=== PATIENT | female | born 1960 | race African-American/Black ===

== ENCOUNTER → 2016-11-21 | Outpatient (CLI) | payer BC ==
[2016-11-21 08:31] LABS: BASOPHILS % 0.7 % (0.0-2.0); HEMATOCRIT. 39.4 % (36.0-48.0); HEMOGLOBIN. 12.9 g/dL (12.0-16.0); LYMPHOCYTES % 39.1 % (20.0-50.0); MEAN CORPUSCULAR HEMOGLOBIN 28.1 pg (28.0-32.0); MEAN CORPUSCULAR HGB CONC 32.6 g/dL (31.0-37.0); MEAN PLATELET VOLUME 9.1 fl (7.4-10.4); MONOCYTES % 6.6 % (2.0-8.0); NEUTROPHILS % 50.6 % (40.0-76.0); PLATELET 255 x1000/uL (130-400); RED BLOOD CELL COUNT 4.58 mill/uL (4.2-5.4); RED CELL DISTRIBUTION WIDTH 13.8 % (11.6-14.6); WHITE BLOOD COUNT 9.6 x1000/uL (4.5-11.0)
[2016-11-21 08:41] LABS: CLARITY URINE CLEAR (CLEAR); COLOR URINE YELLOW (YELLOW); GLUCOSE URINE NEGATIVE (NEGATIVE); KETONES URINE NEGATIVE (NEGATIVE); LEUKOCYTE ESTERASE URINE 1+ (NEGATIVE); NITRITE URINE NEGATIVE (NEGATIVE); OCCULT BLOOD URINE NEGATIVE (NEGATIVE); PROTEIN URINE NEGATIVE (NEGATIVE)
[2016-11-21 09:12] LABS: CHLORIDE 104 mEq/L (98-107); HDL CHOLESTEROL 64 mg/dL (40-59); INDEX HEMOLYSI 1 (1-3); INDEX ICTERIC 1 (1-4); INDEX LIPEMIC 1 (1-3)
[2016-11-21 09:13] LABS: RBC URINE 0-2 /hpf (0-2); SQUAMOUS EPITHELIAL CELL URINE 1+ /lpf (RARE/1+)
[2016-11-21 09:14] LABS: BACTERIA URINE TRACE; INDEX HEMOLYSI 1 (1-3)
[2016-11-21 09:28] LABS: ALANINE AMINOTRANSFERASE 26 IU/L (13-61); ALBUMIN 4.1 g/dL (3.4-5.0); ANION GAP 12; CARBON DIOXIDE 29 mEq/L (21-32); LDL CHOLESTEROL 103 mg/dL (5-100); T3 FREE 2.92 pg/ml (2.18-3.98); THYROID STIMULATING HORMONE 0.83 uIU/mL (0.36-3.74); TRIGLYCERIDE 102 mg/dL (0-150); UREA NITROGEN BLOOD 16 mg/dL (7-21); URIC ACID 3.8 mg/dL (2.6-7.2); eGFR > 60 mL/min (>60)
[2016-11-21 09:44] LABS: VITAMIN B12 SERUM 456 pg/mL (211-911)
== END | disposition home or self-care (01) ==
LOC: LAB 07:32
PROVIDERS: ATTEND Internal Medicine
DX: Z00.00 Encounter for general adult medical examination without abnormal findings (principal); R07.9 Chest pain, unspecified; E04.9 Nontoxic goiter, unspecified; M71.4 Calcium deposit in bursa
CPT/HCPCS: 36415; 80053; 80061; 81001; 82306; 82607; 83036; 84439; 84443; 84481; 84550; 85025; 85651; 87086

== ENCOUNTER → 2019-10-03 | Outpatient (CLI) | payer BC ==
[2019-10-03 08:06] LABS: CLARITY URINE CLEAR (CLEAR); COLOR URINE YELLOW (YELLOW); KETONES URINE NEGATIVE (NEGATIVE); LEUKOCYTE ESTERASE URINE NEGATIVE (NEGATIVE); NITRITE URINE NEGATIVE (NEGATIVE); OCCULT BLOOD URINE NEGATIVE (NEGATIVE); PH URINE 5.5 (4.5-8.0); PROTEIN URINE NEGATIVE (NEGATIVE); SPECIFIC GRAVITY URINE 1.028 (1.005-1.030); UROBILINOGEN URINE 0.2 E.U./dL (0.2-1.0)
[2019-10-03 08:24] LABS: BASOPHILS % 1.1 % (0.0-2.0); HEMATOCRIT. 42.4 % (36.0-48.0); HEMOGLOBIN. 14.1 g/dL (12.0-16.0); LYMPHOCYTES % 26.8 % (20.0-50.0); MEAN CORPUSCULAR HEMOGLOBIN 29.4 pg (28.0-32.0); MEAN CORPUSCULAR VOLUME 88.5 fL (81.0-99.0); MEAN PLATELET VOLUME 8.6 fl (7.4-10.4); MONOCYTES % 6.3 % (2.0-8.0); NEUTROPHILS % 64.8 % (40.0-76.0); PLATELET 261 x1000/uL (130-400); RED CELL DISTRIBUTION WIDTH 13.1 % (11.6-14.6)
[2019-10-03 08:32] LABS: CHLORIDE 104 mEq/L (98-107)
[2019-10-03 08:37] LABS: PHOSPHORUS 3.6 mg/dL (2.5-4.9)
[2019-10-03 08:38] LABS: LDL CHOLESTEROL 121 mg/dL (5-100)
[2019-10-03 08:39] LABS: C REACTIVE PROTEIN QUANT 6.2 mg/L (0.0-3.0)
[2019-10-03 08:40] LABS: HDL CHOLESTEROL 61 mg/dL (40-59); TOTAL IRON BINDING CAPACITY 361 ug/dL (250-450)
[2019-10-03 08:42] LABS: T4 FREE 1.17 ng/dL (0.76-1.46)
[2019-10-03 12:25] LABS: TRIOIODOTHYRONINE TOTAL 1.52 ng/ml (0.60-1.81)
[2019-10-03 12:37] LABS: HEPATITIS B SURFACE ANTIGEN NEGATIVE
[2019-10-03 13:06] LABS: HEPATITIS A AB IGM NEGATIVE (NEGATIVE)
[2019-10-04 09:06] LABS: FOLICLE STIMULATING HORMONE 91.9 mIU/mL (.); LUTEINIZING HORMONE 53.7 mIU/mL (.); PROGESTERONE 0.1 ng/mL (.); TRANSFERRIN 238 mg/dL (200-370); VITAMIN D 25-OH 10.3 ng/mL (30.0-100.0)
== END | disposition home or self-care (01) ==
LOC: LAB 07:35
PROVIDERS: ATTEND Internal Medicine
DX: I10 Essential (primary) hypertension (principal); E55.9 Vitamin D deficiency, unspecified; E78.00 Pure hypercholesterolemia, unspecified; D68.9 Coagulation defect, unspecified; N39.0 Urinary tract infection, site not specified; D64.9 Anemia, unspecified; R94.5 Abnormal results of liver function studies; R60.9 Edema, unspecified; R87.1 Abnormal level of hormones in specimens from female genital organs; N95.9 Unspecified menopausal and perimenopausal disorder; R94.6 Abnormal results of thyroid function studies
CPT/HCPCS: 36415; 80053; 80061; 81003; 82024; 82248; 82306; 82533; 82626; 83001; 83002; 83036; 83540; 83550; 84100; 84144; 84403; 84436; 84439; 84443; 84466; 84480; 84481; 84550; 85025; 85651; 86140; 86677; 86705; 86709; 86803; 87340

== ENCOUNTER → 2020-06-18 | Outpatient (CLI) | payer BC ==
[2020-06-18 07:59] LABS: BASOPHILS % 0.7 % (0.0-2.0); EOSINOPHILS % 1.1 % (0.0-5.0); HEMOGLOBIN. 13.8 g/dL (12.0-16.0); LYMPHOCYTES % 32.5 % (20.0-50.0); MEAN PLATELET VOLUME 8.5 fl (7.4-10.4); NEUTROPHILS % 59.7 % (40.0-76.0); PLATELET 304 x1000/uL (130-400); RED BLOOD CELL COUNT 4.78 mill/uL (4.2-5.4); RED CELL DISTRIBUTION WIDTH 13.3 % (11.6-14.6)
== END | disposition home or self-care (01) ==
LOC: LAB 07:33
PROVIDERS: ATTEND Internal Medicine
DX: Z20.828 Contact with and (suspected) exposure to other viral communicable diseases (principal)
CPT/HCPCS: 36415; 85025; 87426

== ENCOUNTER → 2020-06-19 | Outpatient (CLI) | payer BC | END | disposition home or self-care (01) | LOC: US 07:40 | PROVIDERS: ATTEND Internal Medicine | DX: E04.2 Nontoxic multinodular goiter (principal); E07.9 Disorder of thyroid, unspecified | CPT/HCPCS: 76536 ==